=== PATIENT | female | born 1985 | race Caucasian/White ===

== ENCOUNTER 2018-12-08 09:29 | Day surgery (SDC) | payer BC ==
[~2018-12-08 09:29] MED LIST: ACETAMINOPHEN 1,000 MG/100 ML BTL IVPB ONE; CLINDAMYCIN PHOS/D5W 900MG 900 MG/50 ML BAG IVPB ONE
[2018-12-08] MEDS ORDERED: KETOROLAC 30 MG/ML VIAL IVP ONE ×2 (09:30→13:31)
[2018-12-08] MEDS ORDERED: LABETALOL HCL 5MG/ML, 20ML VIAL IV ONE (09:30)
[2018-12-08] MEDS ORDERED: ONDANSETRON HCL IV 4 MG/2 ML VIAL IVP ONE (09:30)
[2018-12-08] MEDS ORDERED: DEXAMETHASONE 4 MG/ML 1ML VIAL IVP ONE (09:30)
[2018-12-08] MEDS ORDERED: MORPHINE SULFATE 4 MG/ML VIAL IVP ONE (09:30)
[2018-12-08] MEDS ORDERED: PROPOFOL 10 MG/ML VIAL IV ONE (09:30)
[2018-12-08] MEDS ORDERED: ENOXAPARIN 40 MG/0.4 ML SYR SQ ONE (09:30)
[2018-12-08] MEDS ORDERED: SEVOFLURANE 250 ML INH ONE (09:30)
[2018-12-08] MEDS ORDERED: LIDOCAINE 2% MDV (20MG/ML) 20ML VIAL IV ONE (09:30)
[2018-12-08] MEDS ORDERED: KETAMINE HCL 100MG/1ML VIAL INJ ONE (09:30)
[2018-12-08] MEDS ORDERED: RINGERS SOLUTION,LACTATED 1,000 ML IV ONE (12:52)
[2018-12-08] MEDS ORDERED: HYDROCODONE/APAP 7.5/325MG TABLET PO ONE (13:41)
--- NOTE | 2018-12-10 13:20 | Operative Note ---
DATE OF SURGERY: 12/08/2018 PREOPERATIVE DIAGNOSIS: Internal derangement of the left knee. POSTOPERATIVE DIAGNOSES: 1. Large chondral lesion of the medial femoral condyle. 2. Large meniscal cyst anterior horn of the lateral meniscus. OPERATION: 1. Left knee arthroscopy with chondroplasty of the medial femoral condyle. 2. Left knee arthroscopy with resection of a meniscal cyst of the lateral meniscus. STAFF SURGEON: Ghassan Vee MD ANESTHESIA: General. PREPARATION: Chloraprep. INDIVIDUAL CONSIDERATIONS: None. PROCEDURE: The patient was taken to the operating room and placed supine on the operating room table. The patient had a successful induction with general anesthetic. The left lower extremity was prepped and draped in the usual fashion. I attempted to first put a superolateral portal but she was so obese, I just could not get into the knee, so I had to move to a superomedial portal. The skin was infiltrated with 0.5% Marcaine with epinephrine prior. The knee was then inflated with normal saline. An inferomedial and an inferolateral portal were made in a similar fashion. The arthroscope was introduced through the inferolateral portal up into the pouch. The patient had a very large fat pad which was debrided to facilitate view. Patellofemoral compartment showed a pretty normal patella and a central fissure in the notch. Medially she had a large unstable lesion in the medial femoral condyle just lateral to the midline about the size of a quarter which was basically peeling but luckily not down to bone. This was probably causing her catching. This was debrided back to a stable cartilage with a shaver. Meniscus and tibial plateau were normal. In the notch, the cruciates were normal. Laterally, she had a very large meniscal cyst measuring about 1 x 2 cm anteriorly. This was debrided out with a shaver but the remainder of the compartment was normal. The knee was then irrigated out with saline to remove loose floating debris. Portals were closed with brie, and 10 mL of 0.5% Marcaine with epinephrine along with 4 mg of morphine and 40 mg of Depo-Medrol were injected into the knee. A sterile bulky compressive dressing was applied. The patient tolerated procedure well. Needle and sponge counts were correct. Estimated blood loss was minimal. She was taken back to recovery in good condition. There were no complications. CYNTHIA
== END 2018-12-08 13:57 | disposition home or self-care (01) ==
LOC: SUR 09:29
PROVIDERS: ATTEND Orthopaedic Surgery
DX: M23.042 Cystic meniscus, anterior horn of lateral meniscus, left knee (principal); M24.10 Other articular cartilage disorders, unspecified site; E03.9 Hypothyroidism, unspecified; E66.9 Obesity, unspecified; Z68.41 Body mass index [BMI] 40.0-44.9, adult
CPT/HCPCS: 81025; J1650; J1885; J2270; J2405; J3490; J7120